=== PATIENT | female | born 1985 | race Caucasian/White ===

== ENCOUNTER 2017-01-21 11:22 | Inpatient (IN) | payer MEDICAID, OTHER, SELFPAY ==
[2017-01-21] VITALS (18 sets, daily range): BP systolic 107–188; BP diastolic 53–123
[~2017-01-21] VITALS: Ht 188 cm; Wt 81.0 kg
[2017-01-21] MEDS ORDERED: PENICILLIN G POTASSIUM IV 5 MU in D5W MINI-BAG PLUS 100 ML IV STA (12:36)
[2017-01-21] MEDS ORDERED: LACTATED RINGER'S 1000 ML IV STA (12:36)
[2017-01-21] MEDS ORDERED: LR 1,000 ML IV SCH (13:00)
[2017-01-21 13:17] LABS: MEAN CORPUSCULAR HEMOGLOBIN 30.8 pg (27.0-33.0); MEAN CORPUSCULAR HGB CONC 32.9 g/dl (32.0-36.5); MEAN CORPUSCULAR VOLUME 93.6 fl (80.0-96.0); RED CELL DISTRIBUTION WIDTH 13.2 % (11.5-14.5)
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
[2017-01-21] MEDS ORDERED: PRENTAB9 PO (13:33)
[2017-01-21] MEDS ORDERED: PROMETHAZINE INJ 25 MG/ML VIAL (J2550) IV ONE (13:45)
[2017-01-21] MEDS ORDERED: BUTORPHANOL 2 MG/ML INJ (J0595) IV ONE (13:45)
--- NOTE | 2017-01-21 14:37 | IPNPDOC ---
Date Seen The patient was seen on 01/21/17. Progress Note SUBJECTIVE: Patient is a 31-year-old female with 11 para 2081 in active labor OBJECTIVE PHYSICAL EXAMINATION: VITAL SIGNS: Please see below. GENERAL: Coping well breathing with contractions ABDOMINAL: Contractions remained irregular palpate firm 2-5 minutes apart, bedside ultrasound confirms vertex presentation, heart 120 moderate variability category 1 tracing. Patient has had no care this . PSYCHOLOGICAL: Father of the baby and family present and supportive. LABORATORY DATA: Please see below. MICROBIOLOGY: Please see below. IMAGING: Bedside ultrasound confirms vertex presentation ASSESSMENT AND PLAN: This is a 31-year-old female, 11, para 2081 with active labor, vertex presentation. Admit, routine labs including hepatitis and HIV. Patient desires IV pain medicine. Dr. Sosa aware of patient's status. Anticipate normal spontaneous vaginal . VS, I&O, 24H, Fishbone Vital Signs/I&O Vital Signs Date Time Temp Pulse Resp B/P (MAP) Pulse Ox O2 Delivery O2 Flow Rate FiO2 01/21/17 14:05 24 Laboratory Data 24H LABS Laboratory Tests 2 01/21/17 12:55: 01/21/17 12:56: Urine Appearance CLEAR, Urine Color STRAW, Urine pH 7.0, Urine Specific [place] 1.003, Urine Protein NEGATIVE, Urine Glucose (UA) NEGATIVE, Urine Ketones NEGATIVE, Urine Urobilinogen 0.2, Urine Bilirubin NEGATIVE, Urine Leukocyte Esterase 2+H, Urine Blood 2+H, Urine Nitrite NEGATIVE, Urine WBC (Auto) 9H, Urine RBC (Auto) 2, Urine Hyaline Casts (Auto) 0, Urine Bacteria (Auto) 1+H, Urine Squamous Epithelial Cells 1, Urine Sperm (Auto) Remainder of labs pending CBC/BMP Laboratory Tests 01/21/17 12:56 Red Blood Count 4.21, Mean Corpuscular Volume 93.6, Mean Corpuscular Hemoglobin 30.8, Mean Corpuscular Hemoglobin Concent 32.9, Red Cell Distribution Width 13.2 Shaina Mcnulty CNM Jan 21, 2017 14:37
[2017-01-21 15:06] LABS: HBSAG L&D NEGATIVE (NEGATIVE)
[2017-01-21] MEDS ORDERED: FENTANYL 2MCG/ML ROPIVACAINE 0.2% IN 0.9% NACL 200ML IVBAG As Ordered ONE (15:42)
[2017-01-21] MEDS ORDERED: PENICILLIN G POTASSIUM IV 2.5 MU in D5W 100 ML IV SCH (17:00)
[2017-01-21] MEDS ORDERED: diphenhydrAMINE INJ 50MG/ML VIAL (J1200) IV PRN (18:45)
[2017-01-21] MEDS ORDERED: NALOXONE INJ 0.4 MG/1 ML VIAL (J2310) IV PRN (18:45)
[2017-01-21] MEDS ORDERED: EPIDURAL/PCA KEYS XX PRN (18:45)
[2017-01-21] MEDS ORDERED: ePHEDrine SULFATE 25 MG/5 ML(5MG/ML) SYRINGE IV PRN (18:45)
[2017-01-21] MEDS ORDERED: ONDANSETRON 4MG/2ML VIAL (J2405) IV PRN (18:45)
[2017-01-21] MEDS ORDERED: REFRIGERATOR IV KEYS XX PRN (18:45)
[2017-01-21] MEDS ORDERED: EPIDURAL COMMENT XX SCH (18:45)
[2017-01-21] MEDS ORDERED: FENTANYL/ROPIVACAINE/NACL BAG 200 ML EPIDURAL SCH (18:45)
[2017-01-21] MEDS ORDERED: OXYTOCIN 30 UNITS IN 0.9% NaCl 500ML IV BAG (J2590) As Ordered ONE (19:40)
[2017-01-21] MEDS ORDERED: OXYTOCIN DRIP 30 UNITS in APPROPRIATE DILUENT 1 EA IV SCH (20:10)
[2017-01-21] MEDS ORDERED: METHYLERGONOVINE MALEATE 0.2 MG TAB PO PRN (20:15)
[2017-01-21] MEDS ORDERED: MOM 30ML SUSPENSION UDC PO PRN (20:15)
[2017-01-21] MEDS ORDERED: ANUSOL HC CREAM 30GM TOP PRN (20:15)
[2017-01-21] MEDS ORDERED: RHOGAM 300 MCG (1500 IU) INJ (J2790) IM SCH (20:15)
[2017-01-21] MEDS ORDERED: DIBUCAINE 1% OINTMENT 30GM TOP PRN (20:15)
[2017-01-21] MEDS ORDERED: DOCUSATE SODIUM 100 MG CAP PO PRN (20:15)
[2017-01-21] MEDS ORDERED: MEASLES,MUMPS,RUBELLA VACCINE INJ (MMR-II) (90707) SC SCH (20:15)
[2017-01-21] MEDS ORDERED: ACETAMINOPHEN 500 MG TAB PO PRN (20:15)
--- NOTE | 2017-01-21 21:13 | DNPDOC ---
[facility] Delivery Note Delivery Note DATE OF DELIVERY: 01/21/2017 PREDELIVERY DIAGNOSIS: Spontaneous active labor at term. No care, approximately 39 weeks' gestation- POST DELIVERY DIAGNOSIS: Delivered. PROCEDURE: Spontaneous vaginal delivery. Production Support Specialist Shaina Mcnulty and Gloria Brunner student nurse farm mortgage agent. ANESTHESIA: Epidural. ESTIMATED BLOOD LOSS: 350 mL. FINDINGS: 6 pound 14 ounce, 3110 g female infant, Score 8/9, DELIVERY SUMMARY: Patient is a 31-year-old 11 para 3 -0 -8-3 who was admitted to labor and delivery for active labor. Patient was comfortable with epidural. Artificial rupture of membranes for clear fluid. Large amount at 1934. Fully dilated at the same time. Viable female child delivered BERKLEY at 1946. Spontaneous respirations with stimulation transitioned on the maternal abdomen. Cord was doubly clamped and cut after pulsations ceased. Placenta Handley intact with three-vessel cord and trailing membranes at 1956. Fundus firmed with massage and IV Pitocin bolus. Estimated blood loss 350 mL. Perineum intact. Sponge, sharp and instrument count correct. Shaina Mcnulty CNM Jan 21, 2017 21:13
[2017-01-21] MEDS: IBUPROFEN 800 MG TAB PO PRN (22:12)
[2017-01-22 07:40] VITALS: BP 101/57
[2017-01-22] MEDS: PRENATAL VITAMINS CHEWABLE TABLET PO SCH (09:00)
[2017-01-22] MEDS: SERTRALINE HCL 25 MG TABLET PO SCH (09:00)
[2017-01-22] MEDS ORDERED: RHOGAM 300 MCG (1500 IU) INJ (J2790) IM SCH (09:00)
[2017-01-22] MEDS: IBUPROFEN 800 MG TAB PO PRN ×2 (10:15→19:17)
[2017-01-22 13:05] VITALS: BP 119/57
[2017-01-22] MEDS ORDERED: NICOTINE 21MG/24HR 1 EA TRANSDERMAL TD PRN (16:00)
[2017-01-22 18:00] VITALS: BP 104/55
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
[2017-01-23] MEDS: PRENATAL VITAMINS CHEWABLE TABLET PO SCH (08:21)
[2017-01-23] MEDS ORDERED: ADACEL/BOOSTRIX VACCINE (DIPHTH/PERTUSS/ACELL/TETANUS)0.5ML SYR (90715) IM ONE (09:00)
[2017-01-23] MEDS: SERTRALINE HCL 25 MG TABLET PO SCH (09:21)
[2017-01-23] MEDS ORDERED: ZOLO25TA PO (10:21)
[2017-01-23] MEDS ORDERED: ACET50TA PO (10:28)
[2017-01-23] MEDS ORDERED: IBUP-1114 PO (10:28)
[2017-01-23] MEDS ORDERED: MOM30SS PO (10:28)
[2017-01-23] MEDS ORDERED: PRENTAB9 PO (10:28)
[2017-01-23] MEDS ORDERED: COLA100C5 PO (10:29)
== END 2017-01-23 11:45 | disposition home or self-care (01) | DRG 560 ==
LOC: M LDO 11:22 → M LDI 12:37 → M OBS 01-22 13:08
PROVIDERS: ADMIT Advanced Practice Midwife; ATTEND Advanced Practice Midwife
PROC: 10E0XZZ Delivery of Products of Conception, External Approach (ICD-10-PCS; principal; 2017-01-21)
PROC: 10907ZC Drainage of Amniotic Fluid, Therapeutic from Products of Conception, Via Natural or Artificial Opening (ICD-10-PCS; 2017-01-21)
DX: O99.334 Smoking (tobacco) complicating childbirth (principal); O99.344 Other mental disorders complicating childbirth; F32.9 Major depressive disorder, single episode, unspecified; F17.210 Nicotine dependence, cigarettes, uncomplicated; Z3A.39 39 weeks gestation of pregnancy; F43.10 Post-traumatic stress disorder, unspecified; Z91.5 Personal history of self-harm; Z81.8 Family history of other mental and behavioral disorders; Z37.0 Single live birth

== ENCOUNTER 2019-02-17 19:33 | Inpatient (IN) | payer SELFPAY ==
[~2019-02-17] VITALS: Ht 188 cm; Wt 72.3 kg
[~2019-02-17 19:33] MED LIST: COLA100C5 PO; IBUP-1114 PO; MAPA500T2 PO; MOM30SS PO; PRENTAB9 PO; ZOLO25TA PO
[2019-02-17] MEDS ORDERED: LR 1,000 ML IV ONE (20:30)
[2019-02-17 20:40] LABS: BASO % 0.2 % (0.0-1.0); EOS # 0.2 10^3/uL (0.0-0.5); EOS % 1.1 % (0.0-3.0); HEMATOCRIT 32.7 % (36.0-47.0); LYMPH # 3.4 10^3/uL (1.5-5.0); LYMPH % 21.4 % (24.0-44.0); MEAN CORPUSCULAR HEMOGLOBIN 30.2 pg (27.0-33.0); MEAN CORPUSCULAR HGB CONC 33.6 g/dl (32.0-36.5); MEAN CORPUSCULAR VOLUME 89.8 fl (80.0-96.0); MONO # 0.9 10^3/uL (0.0-0.8); MONO % 5.3 % (0.0-5.0); NEUTROPHILS # 11.5 10^3/uL (1.5-8.5); NEUTROPHILS % 71.4 % (36.0-66.0); PLATELET COUNT, AUTOMATED 231 10^3/uL (150-450); RED BLOOD COUNT 3.64 10^6/uL (4.00-5.40); WHITE BLOOD COUNT 16.1 10^3/uL (4.0-10.0)
[2019-02-17 20:43] VITALS: BP 107/51
[2019-02-17] MEDS ORDERED: OXYTOCIN 30 UNITS IN 0.9% NaCl 500ML IV BAG (J2590) As Ordered ONE (21:19)
[2019-02-17 21:46] LABS: HIV 1&2 SCREEN CENTAUR NEGATIVE (NEGATIVE); RUBELLA IgG QUALITATIVE EQUIVOCAL (IMMUNE)
[2019-02-17] MEDS ORDERED: miSOPROStol 200 MCG TAB (S0191) PR ONE (22:00)
[2019-02-17] MEDS ORDERED: OXYTOCIN DRIP 30 UNITS in IV 1 EA IV SCH (22:14)
[2019-02-17] MEDS ORDERED: IBUPROFEN 800 MG TAB PO PRN (22:15)
[2019-02-17] MEDS ORDERED: ANUSOL HC CREAM 30GM TOP PRN (22:15)
[2019-02-17] MEDS: FERROUS SULFATE 325MG TAB PO SCH (22:15)
[2019-02-17] MEDS ORDERED: ACETAMINOPHEN 500 MG TAB PO PRN (22:15)
[2019-02-17] MEDS ORDERED: DIBUCAINE 1% OINTMENT 30GM TOP PRN (22:15)
[2019-02-17] MEDS ORDERED: DOCUSATE SODIUM 100 MG CAP PO PRN (22:15)
[2019-02-17] MEDS ORDERED: METOCLOPRAMIDE INJ 10MG/2ML VIAL (J2765) IV PRN (22:15)
[2019-02-17] MEDS ORDERED: RHOGAM 300 MCG (1500 IU) INJ (J2790) IM SCH (22:15)
[2019-02-17] MEDS ORDERED: MEASLES,MUMPS,RUBELLA VACCINE INJ (MMR-II) (90707) SC SCH (22:15)
[2019-02-17] MEDS ORDERED: ACETAMINOPHEN TAB 650MG DOSE (2X325MG) PO PRN (22:15)
[2019-02-17] MEDS ORDERED: IBUPROFEN 600 MG TAB PO PRN (22:15)
[2019-02-17 22:16] VITALS: BP 107/56
[2019-02-17 22:30] VITALS: BP 106/59
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
--- NOTE | 2019-02-17 22:53 | DNPDOC ---
[facility] Delivery Note Delivery Note DATE OF DELIVERY: 02/17/2019 PREDELIVERY DIAGNOSIS: Approximately 41 weeks' gestation and labor. No care POST DELIVERY DIAGNOSIS: Delivered. PROCEDURE:. Spontaneous vaginal delivery. Provider: Shaina Mcnulty CNM ANESTHESIA: None. ESTIMATED BLOOD LOSS: 1000 mL. FINDINGS: 7 pound 2 ounce, 3230 g male infant, Score, 8/, 9, no nuchal cord. DELIVERY SUMMARY: Patient is a 33-year-old 12 now para 4 -0 -8-4 who was admitted to labor and delivery for active labor, imminent delivery. Upon admit. Patient was found to be fully dilated, +1 station with a category 1 tracing. Artificial rupture of membranes 2125. Viable male delivered ELVIA at 2145. Spontaneous respirations. Transitioned on maternal abdomen. Cord gases were obtained and are pending. Cord doubly clamped and cut once pulsation ceased. Apgars 8 and 9, brisk bleeding continued during third stage of delivery. Placenta Armstrong intact 2156. Fundus firmed with massage and IV Pitocin bolus, brisk bleeding persisted 1000 g misoprostol provided HI with excellent control of bleeding. Estimated blood loss approximately 1000 mL. Cervix, vagina and perineum intact. Sponge, sharp and instrument count correct. Parents are naming their sonKin. Shaina Mcnulty CNM Feb 17, 2019 22:53
[2019-02-17 23:01] VITALS: BP 111/53
[2019-02-17] MEDS: METHYLERGONOVINE MALEATE 0.2 MG TAB PO SCH (23:03)
[2019-02-17] MEDS ORDERED: medroxyPROGESTERone ACET IM SUSP 150 MG/ML VIAL (J1050) IM SCH (23:15)
[2019-02-17] MEDS ORDERED: medroxyPROGESTERone ACET IM SUSP 150 MG/ML VIAL (J1050) IM ONE (23:15)
[2019-02-17 23:20] LABS: CORD GAS ABE A -1.6; CORD GAS HCO3 A 26.7 MEQ/L; CORD GAS O2 SAT A 71.7 %; CORD GAS PCO2 A 58.7 mmHg; CORD GAS PH A 7.276 UNITS; CORD GAS PO2 A 27.6 mmHg; CORD GAS SBC A 22.4 MEQ/L; CORD GAS TCO2 A 28.5 MEQ/L
[2019-02-17 23:20] LABS: CORD GAS ABE V -0.4; CORD GAS HCO3 V 25.6 MEQ/L; CORD GAS O2 SAT V 89.8 %; CORD GAS PCO2 V 46.8 mmHg; CORD GAS PH V 7.356 UNITS; CORD GAS PO2 V 41.3 mmHg; CORD GAS SBC V 23.9 MEQ/L
[2019-02-18] MEDS: METHYLERGONOVINE MALEATE 0.2 MG TAB PO SCH ×3 (04:44→15:45)
[2019-02-18 05:51] VITALS: BP 91/47
[2019-02-18 06:54] LABS: HEMATOCRIT 30.2 % (36.0-47.0); HEMOGLOBIN 9.9 g/dl (12.0-15.5); MEAN CORPUSCULAR HEMOGLOBIN 29.6 pg (27.0-33.0); MEAN CORPUSCULAR HGB CONC 32.8 g/dl (32.0-36.5); MEAN CORPUSCULAR VOLUME 90.4 fl (80.0-96.0); PLATELET COUNT, AUTOMATED 233 10^3/uL (150-450); RED BLOOD COUNT 3.34 10^6/uL (4.00-5.40); WHITE BLOOD COUNT 12.3 10^3/uL (4.0-10.0)
--- NOTE | 2019-02-18 07:48 | IPNPDOC ---
Text Note Date of Service The patient was seen on 02/18/19. NOTE Feels well. Adequate pain management. Bottle feeding. Voiding VSS, afebrile normotensive. Fundus firm, NT, down 2 Lochia rubra light without odor Perineum intact MDCD BTL consent signed per pt request. Routine care. Consider discharge tomorrow or Wednesday VS,Fishbone, I+O VS, Fishbone, I+O Laboratory Tests 02/17/19 20:22 Red Blood Count 3.64 L, Mean Corpuscular Volume 89.8, Mean Corpuscular Hemoglobin 30.2, Mean Corpuscular Hemoglobin Concent 33.6, Red Cell Distribution Width 14.7 H, Neutrophils (%) (Auto) 71.4 H, Lymphocytes (%) (Auto) 21.4 L, Monocytes (%) (Auto) 5.3 H, Eosinophils (%) (Auto) 1.1, Basophils (%) (Auto) 0.2, Neutrophils # (Auto) 11.5 H, Lymphocytes # (Auto) 3.4, Monocytes # (Auto) 0.9 H, Eosinophils # (Auto) 0.2, Basophils # (Auto) 0.0 02/18/19 06:26 Red Blood Count 3.34 L, Mean Corpuscular Volume 90.4, Mean Corpuscular Hemoglobin 29.6, Mean Corpuscular Hemoglobin Concent 32.8, Red Cell Distribution Width 14.6 H Vital Signs Date Time Temp Pulse Resp B/P (MAP) Pulse Ox O2 Delivery O2 Flow Rate FiO2 02/18/19 05:51 97.4 65 16 91/47 (62) I&O- Last 24 Hours up to 6 AM 02/18/19 05:59 Output Total 1000 ml Balance -1000 ml Shaina Mcnulty CNM Feb 18, 2019 07:48
[2019-02-18 08:35] LABS: AMPHETAMINES URINE REFLEX NEGATIVE (NEGATIVE); BARBITURATES URINE REFLEX NEGATIVE (NEGATIVE); BENZODIAZEPINES URINE REFLEX NEGATIVE (NEGATIVE); CANNABINOIDS URINE REFLEX NEGATIVE (NEGATIVE); COCAINE METABOLITE URINE REFLE NEGATIVE (NEGATIVE); METHADONE URINE REFLEX NEGATIVE (NEGATIVE); OPIATES URINE REFLEX NEGATIVE (NEGATIVE); PHENCYCLIDINE URINE REFLEX NEGATIVE (NEGATIVE)
[2019-02-18] MEDS: SERTRALINE HCL 25 MG TABLET PO SCH (10:14)
[2019-02-18] MEDS: FERROUS SULFATE 325MG TAB PO SCH ×2 (10:15→21:06)
[2019-02-18] MEDS: PRENATAL VITAMINS CHEWABLE TABLET PO SCH (10:15)
[2019-02-18 10:18] LABS: CHLAMYDIA DNA AMPLIFICATION NEGATIVE (NEGATIVE); GC DNA AMPLIFICATION NEGATIVE (NEGATIVE)
[2019-02-18 18:11] VITALS: BP 104/56
[2019-02-18] MEDS ORDERED: METHYLERGONOVINE MALEATE 0.2 MG TAB PO PRN (22:00)
[2019-02-19 06:19] VITALS: BP 107/58
[2019-02-19] MEDS: SERTRALINE HCL 25 MG TABLET PO SCH (08:44)
[2019-02-19] MEDS: PRENATAL VITAMINS CHEWABLE TABLET PO SCH (08:44)
[2019-02-19] MEDS: FERROUS SULFATE 325MG TAB PO SCH (08:44)
[2019-02-19] MEDS ORDERED: ADACEL/BOOSTRIX VACCINE (DIPHTH/PERTUSS/ACELL/TETANUS)0.5ML SYR (90715) IM ONE (09:00)
[2019-02-19] MEDS ORDERED: IBUP80TA PO (09:32)
[2019-02-19] MEDS ORDERED: SERT25TA88 PO (15:13)
[2019-02-20 11:03] LABS: HEPATITIS C VIRUS ABY INDEX 0.2 INDEX (<0.8)
== END 2019-02-19 15:30 | disposition home or self-care (01) | DRG 560 ==
LOC: M LDO 19:33 → M LDI 21:16 → M OBS 02-18 00:17
PROVIDERS: ADMIT Advanced Practice Midwife; ATTEND Advanced Practice Midwife
PROC: 10E0XZZ Delivery of Products of Conception, External Approach (ICD-10-PCS; principal; 2019-02-17)
PROC: 10907ZC Drainage of Amniotic Fluid, Therapeutic from Products of Conception, Via Natural or Artificial Opening (ICD-10-PCS; 2019-02-17)
DX: O48.0 Post-term pregnancy (principal); Z3A.41 41 weeks gestation of pregnancy; O99.334 Smoking (tobacco) complicating childbirth; F17.200 Nicotine dependence, unspecified, uncomplicated; O99.344 Other mental disorders complicating childbirth; F41.9 Anxiety disorder, unspecified; Z37.0 Single live birth

== ENCOUNTER 2022-11-12 16:54 | Emergency (ER) | payer OTHER, SELFPAY ==
[~2022-11-12] VITALS: Ht 188 cm; Wt 72.3 kg
[~2022-11-12 16:54] MED LIST changes: +IBUP80TA PO; +SERT25TA21 PO
[2022-11-12 16:55] VITALS: BP 125/58; TEMP 98; O2SAT 97
== END 2022-11-12 18:56 | disposition left against medical advice (07) ==
LOC: M ED 16:54
DX: Z53.21 Procedure and treatment not carried out due to patient leaving prior to being seen by health care provider (principal)